=== PATIENT | female | born 1960 | race Caucasian/White ===

== ENCOUNTER 2022-11-05 18:25 | Emergency (ER) | payer OTHER ==
[~2022-11-05] VITALS: Ht 170.2 cm; Wt 87.9 kg
[~2022-11-05 18:25] MED LIST: ADVIL; COUGH DROPS
[2022-11-05] MEDS ORDERED: MORPHINE SULFATE INJ 2 MG/ml SYRG IM ONE (20:15)
[2022-11-05] MEDS ORDERED: ONDANSETRON ODT 4 MG TAB PO ONE (20:15)
[2022-11-05 20:57] LABS: Urine Bacteria NONE SEEN /hpf (None Seen); Urine Blood Negative /uL (Negative); Urine Specific Gravity 1.015 (1.001-1.035); Urine WBC 1 /hpf (0 - 5)
[2022-11-05 21:21] LABS: Basophils # (auto) 0.1 10 ^3/uL (0-0.2); Basophils % (auto) 1.1 % (0.0-2.0); Eosinophils # (auto) 0.3 10 ^3/uL (0-0.8); Hematocrit 44.9 % (36.0-46.0); Hemoglobin 15.3 g/dL (12.2-16.2); Lymphocytes # (auto) 3.2 10 ^3/uL (0.4-5.4); Lymphocytes % (auto) 37.6 % (10.0-50.0); Mean Corpuscular Hemoglobin 31.4 pg (28.0-32.0); Mean Corpuscular Volume 92.2 fL (80.0-100.0); Monocytes # (auto) 0.7 10 ^3/uL (0-1.3); Monocytes % (auto) 7.8 % (0.0-12.0); Neutrophils # (auto) 4.3 10 ^3/uL (1.6-8.6); Neutrophils % (auto) 50.5 % (37.0-80.0); Nucleated Red Blood Cells % 0.1 %; Red Blood Cells 4.87 10^6/uL (4.0-5.20); White Blood Cell 8.5 10^3/uL (4.4-10.8)
[2022-11-05 21:39] LABS: Albumin 3.9 g/dL (3.4-5.0); Calcium 9.3 mg/dL (8.5-10.1); Potassium 4.2 mmol/L (3.5-5.1)
[2022-11-05 21:43] LABS: BUN/Creatinine Ratio 18.9 (10.0-20.0); Bilirubin, Total 0.2 mg/dL (0.2-1.0); Total Protein 6.8 g/dL (6.4-8.2)
[2022-11-05] MEDS ORDERED: CYCL-837 PO (22:13)
[2022-11-05] MEDS ORDERED: ACE3T PO (22:13)
[2022-11-05 22:15] VITALS: BP 132/75
== END 2022-11-05 22:43 | disposition home or self-care (01) ==
LOC: ER 18:25
DX: S29.012A Strain of muscle and tendon of back wall of thorax, initial encounter (principal); M54.6 Pain in thoracic spine; M47.894 Other spondylosis, thoracic region; F17.210 Nicotine dependence, cigarettes, uncomplicated; Z79.899 Other long term (current) drug therapy; X58.XXXA Exposure to other specified factors, initial encounter; Y93.89 Activity, other specified; Y92.89 Other specified places as the place of occurrence of the external cause; Y99.8 Other external cause status
CPT/HCPCS: 36415; 72128; 80053; 81001; 85025; 85652; 86141; 96372; 99285; J2270; Q0162

== ENCOUNTER 2023-12-12 07:19 | Inpatient (IN) | payer OTHER ==
[~2023-12-12] VITALS: Ht 170.2 cm; Wt 96.6 kg
[2023-12-12] VITALS (26 sets, daily range): BP systolic 93–155; BP diastolic 43–91; PULSE 72–99; RESP 11–26; TEMP 98.3–99; O2SAT 89–98
[~2023-12-12 07:19] MED LIST changes: +ACE3T PO; +CYCL-837 PO
[2023-12-12] MEDS: fentaNYL CITRATE 100 MCG/2 ML VL ONE (07:33)
[2023-12-12] MEDS: MIDAZOLAM HCL 2MG/2ML 2ml VIAL (1mg/ml) ONE (07:33)
[2023-12-12] MEDS: VERAPAMIL 2.5MG/ML INJ 2ML VIAL IV ONE (07:33)
[2023-12-12] MEDS: ANGIOMAX 250 MG VIAL IV ONE (07:33)
[2023-12-12] MEDS: IODIXANOL 320MG/ML 100ML BTL IV ONE ×2 (07:34→08:30)
[2023-12-12] MEDS: LIDOCAINE 2%HCL (LOCAL ANESTH.) INJ 20ML MDV ONE (07:34)
[2023-12-12] MEDS: SODIUM CHL 0.9% 50 ML ONE (07:34)
[2023-12-12] MEDS: MORPHINE SULFATE 4 MG/ML SYR/VIAL IV ONE (07:50)
[2023-12-12] MEDS: ONDANSETRON HCL 4 MG/2 ML VIAL IV ONE (07:50)
[2023-12-12] MEDS: HEPARIN SODIUM (PORCINE) 5000 UNITS/ML 1ML VIAL IV ONE (07:50)
[2023-12-12] MEDS: ASPirin 81 mg TAB PO ONE (07:51)
[2023-12-12] MEDS: HEPARIN SODIUM (PORCINE) 5000 UNITS/ML 1ML VIAL ONE ×2 (07:51→07:52)
[2023-12-12] MEDS: MORPHINE SULFATE 4 MG/ML SYR/VIAL ONE (07:51)
[2023-12-12 08:16] LABS: Basophils # (auto) 0.1 10 ^3/uL (0-0.2); Basophils % (auto) 0.5 % (0.0-2.0); Eosinophils # (auto) 0.2 10 ^3/uL (0-0.8); Eosinophils % (auto) 1.1 % (0.0-7.0); Hematocrit 45.8 % (36.0-46.0); Hemoglobin 15.2 g/dL (12.2-16.2); Lymphocytes # (auto) 1.9 10 ^3/uL (0.4-5.4); Lymphocytes % (auto) 11.3 % (10.0-50.0); Mean Corpuscular Hemoglobin 30.7 pg (28.0-32.0); Mean Corpuscular Hgb Conc. 33.2 g/dL (32.0-36.0); Mean Corpuscular Volume 92.6 fL (80.0-100.0); Neutrophils # (auto) 13.6 10 ^3/uL (1.6-8.6); Neutrophils % (auto) 81.1 % (37.0-80.0); Nucleated Red Blood Cells % 0.1 %; Red Blood Cells 4.94 10^6/uL (4.0-5.20); Red Cell Distribution Width 14.1 % (11.8-14.3); White Blood Cell 16.8 10^3/uL (4.4-10.8)
[2023-12-12 08:28] LABS: Alanine Aminotransferase 22 U/L (7-40); Albumin 4.6 g/dL (3.2-4.8); Alkaline Phosphatase 126 U/L (46-116); Anion Gap 2 (5-15); Aspartate Aminotransferase 10 U/L (13-40); Blood Urea Nitrogen 14 mg/dL (9-23); Calcium 9.8 mg/dL (8.5-10.1); Carbon Dioxide 28 mmol/L (20-30); Chloride 110 mmol/L (98-107); Cholesterol 215 mg/dL (< 200); Glucose 158 mg/dL (74-106); LDL Cholesterol 152 mg/dL (< 100); Potassium 3.9 mmol/L (3.5-5.1); Sodium 140 mmol/L (136-145); Triglycerides 240 mg/dL (< 150)
[2023-12-12 08:29] LABS: Bilirubin, Total 0.4 mg/dL (0.2-1.0); HDL Cholesterol 38 mg/dL (40-59); Total Protein 6.5 g/dL (5.7-8.2)
[2023-12-12] MEDS: ATROPINE SULF 1 MG/10ml SYR ONE (08:31)
[2023-12-12] MEDS: ATROPINE SULFATE 0.4 MG/1 ML VIAL ONE (08:31)
[2023-12-12] MEDS: CLOPIDOGREL BISULFATE 75 MG TAB ONE ×2 (08:33)
[2023-12-12 08:41] LABS: INR 0.97 (0.9-1.15); Partial Thromboplastin Time 23.8 SEC (24.5-34.5); Prothrombin Time 10.3 sec (9.3-11.8)
[2023-12-12] MEDS ORDERED: NITROGLYCERIN 0.4 MG SL TAB SL PRN (08:45)
[2023-12-12] MEDS ORDERED: MORPHINE SULFATE INJ 2 MG/ml SYRG IV PRN (08:45)
[2023-12-12] MEDS: HYDROmorphone HCL 2 MG/ML VL/or syr IV ONE (09:12)
[2023-12-12] MEDS: CLOPIDOGREL BISULFATE 75 MG TAB PO SCH (09:13)
[2023-12-12] MEDS: ASPirin 81 mg TAB PO SCH (09:13)
[2023-12-12] MEDS: HYDROmorphone HCL 2 MG/ML VL/or syr IV PRN (12:18)
[2023-12-12] MEDS: ONDANSETRON HCL 4 MG/2 ML VIAL IV PRN (12:18)
[2023-12-12] MEDS: HYDROmorphone HCL 2 MG/ML VL/or syr ONE (12:44)
[2023-12-12] MEDS: ONDANSETRON HCL 4 MG/2 ML VIAL ONE (12:44)
[2023-12-12] MEDS: OXYCODONE W/ ACETAMINOPHEN 5/325MG TABLET PO PRN (15:21)
[2023-12-12] MEDS: SODIUM CHLORIDE 0.9% 1,000 ML IV SCH (16:23)
[2023-12-12] MEDS: NICOTINE 14 MG/24HR TOPICAL PATCH TD ONE (16:25)
[2023-12-12 18:29] LABS: Urine Bacteria None Seen /hpf (None Seen)
[2023-12-12 18:55] LABS: Urine Blood 1+ /uL (Negative); Urine Clarity Clear (Clear); Urine Color Light-Yellow (Yellow); Urine Mucus FEW (None Seen); Urine Protein, UAD TRACE (Negative); Urine Urobilinogen Normal (Negative); Urine WBC 2 /hpf (0 - 5); Urine pH 6.5 (5.0-9.0)
[2023-12-12 18:56] LABS: Urine Specific Gravity > 1.035 (1.001-1.035)
[2023-12-12] MEDS: CYCLOBENZAPRINE HCL 10 MG TAB PO ONE (20:14)
[2023-12-12] MEDS: ATORVASTATIN 20 MG TAB PO SCH (21:43)
[2023-12-13] VITALS (23 sets, daily range): BP systolic 107–153; BP diastolic 57–81; PULSE 73–101; RESP 11–23; TEMP 98–99.3; O2SAT 90–97
[2023-12-13] MEDS: CYCLOBENZAPRINE HCL 10 MG TAB PO ONE (03:45)
[2023-12-13 06:25] LABS: Basophils # (auto) 0 10 ^3/uL (0-0.2); Basophils % (auto) 0.3 % (0.0-2.0); Eosinophils # (auto) 0.1 10 ^3/uL (0-0.8); Eosinophils % (auto) 0.9 % (0.0-7.0); Hematocrit 42.1 % (36.0-46.0); Hemoglobin 14.1 g/dL (12.2-16.2); Lymphocytes # (auto) 1.6 10 ^3/uL (0.4-5.4); Lymphocytes % (auto) 17.7 % (10.0-50.0); Mean Corpuscular Hemoglobin 31.4 pg (28.0-32.0); Mean Corpuscular Hgb Conc. 33.6 g/dL (32.0-36.0); Mean Corpuscular Volume 93.4 fL (80.0-100.0); Monocytes # (auto) 0.9 10 ^3/uL (0-1.3); Monocytes % (auto) 9.5 % (0.0-12.0); Neutrophils # (auto) 6.5 10 ^3/uL (1.6-8.6); Neutrophils % (auto) 71.6 % (37.0-80.0); Red Blood Cells 4.51 10^6/uL (4.0-5.20); Red Cell Distribution Width 14.1 % (11.8-14.3)
[2023-12-13 06:41] LABS: Alanine Aminotransferase 27 U/L (7-40); Albumin 4.1 g/dL (3.2-4.8); Alkaline Phosphatase 114 U/L (46-116); Anion Gap 3 (5-15); Aspartate Aminotransferase 50 U/L (13-40); BUN/Creatinine Ratio 10.6 (10.0-20.0); Blood Urea Nitrogen 7 mg/dL (9-23); Calcium 8.9 mg/dL (8.5-10.1); Carbon Dioxide 25 mmol/L (20-30); Chloride 110 mmol/L (98-107); Glucose 95 mg/dL (74-106); Potassium 4.2 mmol/L (3.5-5.1); Sodium 138 mmol/L (136-145)
[2023-12-13 06:42] LABS: Bilirubin, Total 0.6 mg/dL (0.2-1.0); Total Protein 6.2 g/dL (5.7-8.2)
[2023-12-13] MEDS: NICOTINE 14 MG/24HR TOPICAL PATCH TD SCH (09:31)
[2023-12-13] MEDS ORDERED: MIDAZOLAM HCL 2MG/2ML 2ml VIAL (1mg/ml) ONE (13:23)
[2023-12-13] MEDS ORDERED: fentaNYL CITRATE 100 MCG/2 ML VL ONE (13:23)
[2023-12-13] MEDS ORDERED: KETAMINE 50mg/ML 1ml syringe ONE ×2 (13:45→14:40)
[2023-12-13] MEDS: BUPIVACAINE 0.25% INJ 50ML VIAL ONE (14:26)
[2023-12-13] MEDS: LIDOCAINE 1% HCL (LOCAL ANESTH.) INJ 20ML MDV ONE (14:35)
[2023-12-13] MEDS ORDERED: KETAMINE 50mg/ML 10ml Vial 0 ML ONE (14:40)
[2023-12-13] MEDS: ceFAZolin 2 GM/D5W50ml 50 ML IV ONE (14:43)
[2023-12-13] MEDS ORDERED: ONDANSETRON HCL 4 MG/2 ML VIAL ONE (14:51)
[2023-12-13] MEDS ORDERED: PROPOFOL 10 MG/ML 20 ML IV ONE ×2 (14:51→15:27)
[2023-12-13] MEDS ORDERED: HYDROmorphone HCL 2 MG/ML VL/or syr IV PRN ×2 (15:30)
[2023-12-13] MEDS: ONDANSETRON HCL 4 MG/2 ML VIAL IV ONE (15:30)
[2023-12-13] MEDS: ceFAZolin 1GM/50ML 50 ML IV SCH (22:28)
[2023-12-14] VITALS (22 sets, daily range): BP systolic 110–139; BP diastolic 45–75; PULSE 92–110; RESP 13–25; TEMP 97.6–99; O2SAT 87–99
[2023-12-14] MEDS: ALBUTEROL SULF 2.5 MG/0.5ML(0.5%) NEB SOLN NEB PRN (11:43)
[2023-12-14] MEDS: HYDROmorphone HCL 2 MG/ML VL/or syr IV PRN (15:48)
[2023-12-14] MEDS: OXYCODONE W/ ACETAMINOPHEN 5/325MG TABLET PO PRN (20:53)
[2023-12-14] MEDS: ATORVASTATIN 20 MG TAB PO SCH (20:53)
[2023-12-15] VITALS (14 sets, daily range): BP systolic 117–128; BP diastolic 60–71; PULSE 85–105; RESP 16–21; TEMP 97.7–99; O2SAT 91–100
[2023-12-15 06:34] LABS: Basophils # (auto) 0 10 ^3/uL (0-0.2); Basophils % (auto) 0.2 % (0.0-2.0); Eosinophils # (auto) 0 10 ^3/uL (0-0.8); Eosinophils % (auto) 0.4 % (0.0-7.0); Hematocrit 35.7 % (36.0-46.0); Hemoglobin 12.3 g/dL (12.2-16.2); Lymphocytes # (auto) 0.8 10 ^3/uL (0.4-5.4); Lymphocytes % (auto) 7.6 % (10.0-50.0); Mean Corpuscular Hemoglobin 32.1 pg (28.0-32.0); Mean Corpuscular Hgb Conc. 34.4 g/dL (32.0-36.0); Mean Corpuscular Volume 93.4 fL (80.0-100.0); Monocytes # (auto) 1.3 10 ^3/uL (0-1.3); Monocytes % (auto) 12.2 % (0.0-12.0); Neutrophils # (auto) 8.4 10 ^3/uL (1.6-8.6); Neutrophils % (auto) 79.6 % (37.0-80.0); Red Blood Cells 3.82 10^6/uL (4.0-5.20); Red Cell Distribution Width 13.6 % (11.8-14.3); White Blood Cell 10.5 10^3/uL (4.4-10.8)
[2023-12-15 06:43] LABS: Anion Gap 4 (5-15); Carbon Dioxide 22 mmol/L (20-30); Chloride 105 mmol/L (98-107); Potassium 3.9 mmol/L (3.5-5.1)
[2023-12-15 06:46] LABS: Sodium 131 mmol/L (136-145)
[2023-12-15 06:49] LABS: Glucose 111 mg/dL (74-106)
[2023-12-15 06:50] LABS: BUN/Creatinine Ratio 11.1 (10.0-20.0); Blood Urea Nitrogen 6 mg/dL (9-23)
[2023-12-15] MEDS: ENOXAPARIN SOD 30 MG/0.3 ML SYRINGE SC ONE (14:34)
[2023-12-15] MEDS: ALBUTEROL SULF 2.5 MG/0.5ML(0.5%) NEB SOLN NEB SCH (15:12)
[2023-12-15] MEDS: CYCLOBENZAPRINE HCL 10 MG TAB PO PRN (16:14)
[2023-12-15] MEDS: ENOXAPARIN SOD 30 MG/0.3 ML SYRINGE SC SCH (20:51)
[2023-12-16] VITALS (16 sets, daily range): BP systolic 106–147; BP diastolic 62–75; PULSE 53–109; RESP 16–20; TEMP 97.6–98.2; O2SAT 90–99
[2023-12-16 14:14] LABS: Basophils # (auto) 0 10 ^3/uL (0-0.2); Basophils % (auto) 0.4 % (0.0-2.0); Eosinophils # (auto) 0.1 10 ^3/uL (0-0.8); Eosinophils % (auto) 1.2 % (0.0-7.0); Hematocrit 34.3 % (36.0-46.0); Hemoglobin 11.7 g/dL (12.2-16.2); Lymphocytes # (auto) 0.7 10 ^3/uL (0.4-5.4); Mean Corpuscular Hemoglobin 31.4 pg (28.0-32.0); Mean Corpuscular Hgb Conc. 34.1 g/dL (32.0-36.0); Monocytes # (auto) 0.9 10 ^3/uL (0-1.3); Monocytes % (auto) 11.2 % (0.0-12.0); Neutrophils # (auto) 6.2 10 ^3/uL (1.6-8.6); Neutrophils % (auto) 78.2 % (37.0-80.0); Red Blood Cells 3.73 10^6/uL (4.0-5.20); Red Cell Distribution Width 13.8 % (11.8-14.3); White Blood Cell 7.9 10^3/uL (4.4-10.8)
[2023-12-16 14:50] LABS: Alanine Aminotransferase 26 U/L (7-40); Albumin 3.5 g/dL (3.2-4.8); Alkaline Phosphatase 106 U/L (46-116); Anion Gap 4 (5-15); Aspartate Aminotransferase 14 U/L (13-40); BUN/Creatinine Ratio 18.2 (10.0-20.0); Blood Urea Nitrogen 10 mg/dL (9-23); Calcium 8.5 mg/dL (8.5-10.1); Carbon Dioxide 24 mmol/L (20-30); Chloride 106 mmol/L (98-107); Glucose 124 mg/dL (74-106); Potassium 3.7 mmol/L (3.5-5.1); Sodium 134 mmol/L (136-145)
[2023-12-16 14:51] LABS: Bilirubin, Total 0.5 mg/dL (0.2-1.0); Total Protein 5.2 g/dL (5.7-8.2)
[2023-12-17] VITALS (16 sets, daily range): BP systolic 11–132; BP diastolic 56–73; PULSE 84–99; RESP 16–20; TEMP 97.9–98.5; O2SAT 91–100
[2023-12-17 06:34] LABS: Basophils # (auto) 0 10 ^3/uL (0-0.2); Basophils % (auto) 0.4 % (0.0-2.0); Eosinophils # (auto) 0.2 10 ^3/uL (0-0.8); Eosinophils % (auto) 3.2 % (0.0-7.0); Hematocrit 33.3 % (36.0-46.0); Hemoglobin 11.4 g/dL (12.2-16.2); Lymphocytes # (auto) 0.9 10 ^3/uL (0.4-5.4); Lymphocytes % (auto) 13.4 % (10.0-50.0); Mean Corpuscular Hemoglobin 31.3 pg (28.0-32.0); Mean Corpuscular Hgb Conc. 34.2 g/dL (32.0-36.0); Mean Corpuscular Volume 91.6 fL (80.0-100.0); Monocytes # (auto) 0.9 10 ^3/uL (0-1.3); Monocytes % (auto) 12.8 % (0.0-12.0); Neutrophils # (auto) 4.9 10 ^3/uL (1.6-8.6); Neutrophils % (auto) 70.2 % (37.0-80.0); Red Blood Cells 3.64 10^6/uL (4.0-5.20); Red Cell Distribution Width 14.1 % (11.8-14.3)
[2023-12-17 06:54] LABS: Alanine Aminotransferase 28 U/L (7-40); Albumin 3.6 g/dL (3.2-4.8); Alkaline Phosphatase 111 U/L (46-116); Anion Gap 5 (5-15); Aspartate Aminotransferase 16 U/L (13-40); BUN/Creatinine Ratio 19.1 (10.0-20.0); Blood Urea Nitrogen 9 mg/dL (9-23); Calcium 8.6 mg/dL (8.5-10.1); Carbon Dioxide 25 mmol/L (20-30); Chloride 104 mmol/L (98-107); Glucose 111 mg/dL (74-106); Magnesium 2.2 mg/dL (1.6-2.6); Potassium 3.4 mmol/L (3.5-5.1); Sodium 134 mmol/L (136-145)
[2023-12-17 06:55] LABS: Bilirubin, Total 0.6 mg/dL (0.2-1.0); Total Protein 5.7 g/dL (5.7-8.2)
[2023-12-17] MEDS: POTASSIUM CHL 20 Meq TABLET PO ONE (15:31)
[2023-12-17] MEDS: HYDROmorphone HCL 2 MG/ML VL/or syr IV PRN (19:46)
[2023-12-18] VITALS (15 sets, daily range): BP systolic 109–135; BP diastolic 66–83; PULSE 74–105; RESP 18–20; TEMP 97.7–98.5; O2SAT 92–100
[2023-12-18 06:33] LABS: Chloride 104 mmol/L (98-107); Potassium 3.6 mmol/L (3.5-5.1); Sodium 135 mmol/L (136-145)
[2023-12-18 06:34] LABS: Anion Gap 4 (5-15); Carbon Dioxide 27 mmol/L (20-30)
[2023-12-18 06:35] LABS: Calcium 8.9 mg/dL (8.5-10.1)
[2023-12-18 06:39] LABS: Blood Urea Nitrogen 10 mg/dL (9-23); Glucose 107 mg/dL (74-106)
[2023-12-18 06:52] LABS: Magnesium 2.1 mg/dL (1.6-2.6)
== END 2023-12-18 20:30 | disposition short-term general hospital (02) | DRG 250 ==
LOC: EDBD 07:19 → ER 07:19 → TELE 08:33 → DOU IN ICU 10:53 → TELE-WESTW 12-14 16:36
PROVIDERS: ADMIT Internal Medicine; ATTEND Internal Medicine
PROC: 02703ZZ Dilation of Coronary Artery, One Artery, Percutaneous Approach (ICD-10-PCS; principal; 2023-12-12)
PROC: 4A023N7 Measurement of Cardiac Sampling and Pressure, Left Heart, Percutaneous Approach (ICD-10-PCS; 2023-12-12)
PROC: B211YZZ Fluoroscopy of Multiple Coronary Arteries using Other Contrast (ICD-10-PCS; 2023-12-12)
PROC: 0QS604Z Reposition Right Upper Femur with Internal Fixation Device, Open Approach (ICD-10-PCS; 2023-12-13)
DX: I21.19 ST elevation (STEMI) myocardial infarction involving other coronary artery of inferior wall (principal); J96.01 Acute respiratory failure with hypoxia; S72.141A Displaced intertrochanteric fracture of right femur, initial encounter for closed fracture; R65.10 Systemic inflammatory response syndrome (SIRS) of non-infectious origin without acute organ dysfunction; E66.9 Obesity, unspecified; E78.5 Hyperlipidemia, unspecified; I10 Essential (primary) hypertension; R55 Syncope and collapse; R73.9 Hyperglycemia, unspecified; F17.210 Nicotine dependence, cigarettes, uncomplicated; W18.39XA Other fall on same level, initial encounter; I25.10 Atherosclerotic heart disease of native coronary artery without angina pectoris; Z68.33 Body mass index [BMI] 33.0-33.9, adult; Y93.89 Activity, other specified; Y92.89 Other specified places as the place of occurrence of the external cause; Y99.8 Other external cause status
CPT/HCPCS: 36415; 70450; 71045; 72170; 73502; 76000; 80048; 80053; 80061; 81001; 83036; 83735; 84484; 85025; 85610; 85730; 86850; 86900; 86901; 87081; 92941; 93005; 93306; 93458; 94640; 96374; 96375; 97110; 97116; 97163; 97530; 99152; G0378; J0461; J2001; J2250; J2405; J2704; J3490; Q9967